=== PATIENT | female | born 2000 | race African-American/Black ===

== ENCOUNTER 2023-05-18 06:19 | Day surgery (SDC) | payer OTHER ==
[~2023-05-18] VITALS: Ht 167.6 cm; Wt 78.0 kg
[2023-05-18] MEDS ORDERED: HYDROGEN PEROXIDE 3% 240 ML BTL TP ONE (07:36)
[2023-05-18] MEDS ORDERED: PROPOFOL 200 MG/20 ML VIAL IV ONE ×4 (09:19→09:30)
[2023-05-18] MEDS ORDERED: fentaNYL citrate 0.05 MG/ML VIAL ONE (09:20)
[2023-05-18] MEDS ORDERED: MIDAZOLAM 2 MG/2 ML VIAL ONE (09:20)
[2023-05-18] MEDS: LIDOCAINE/EPI 1% 1:100000 20 ML VIAL INJ ONE (09:40)
[2023-05-18] MEDS: BUPIVACAINE-MPF 0.25% 30 ML VIAL INJ ONE (09:40)
== END 2023-05-18 11:15 | disposition home or self-care (01) ==
LOC: MDS 06:19 → MMU 06:40 → MDS 11:15
PROVIDERS: ATTEND Surgery
DX: K60.1 Chronic anal fissure (principal); Z88.0 Allergy status to penicillin; Z79.899 Other long term (current) drug therapy; Z98.890 Other specified postprocedural states
CPT/HCPCS: 46230; 46275; 71045; 88304; 88312; J2001; J2250; J2704; J3010; J3490